=== PATIENT | female | born 1960 | race Caucasian/White ===

== ENCOUNTER 2025-05-17 08:33 | Outpatient (CLI) | payer OTHER, SELFPAY ==
--- NOTE | 2025-05-17 09:00 | CRLHL7_ITS ---
For Patients: As a result of the Century Cures Act, medical imaging exams and procedure reports are released immediately into your electronic medical record. You may view this report before your referring provider. If you have questions, please contact your health care provider. Indication: F/U NODULE SEEN ON CXR Technique: Noncontrast CT chest Please note that all CT scans at this facility use dose modulation, iterative reconstruction, and/or weight-based dosing when appropriate to reduce radiation dose to as low as reasonably achievable. Comparison: Chest x-ray 05/09/2025 Findings: 1.6 cm focal airspace density is present within the lingula. Reticulonodular densities in the right middle lobe measure 2 cm in total. No pleural effusion or pulmonary edema. Vascular calcifications. No adenopathy. Visualized thyroid normal. No fracture. Impression: 1.6 cm nodular masslike density in the lingula. This could be inflammatory. Follow-up in 3 months recommended. Focal reticulonodular densities in the right middle lobe measuring 2 cm. These could also be inflammatory and follow-up in 3 months recommended. Please note that all CT scans at this facility use dose modulation, iterative reconstruction, and/or weight-based dosing when appropriate to reduce radiation dose to as low as reasonably achievable. Dictated by Yifan Santos MD @ 05/17/2025 9:28:23 AM (Electronically Signed)
== END 2025-05-17 08:34 | disposition home or self-care (01) ==
PROVIDERS: Visit Provider Family Medicine
DX: R91.8 Other nonspecific abnormal finding of lung field (principal); R05.9 Cough, unspecified
CPT/HCPCS: 71250